=== PATIENT | female | born 1995 | race Two or more races ===

== ENCOUNTER 2019-10-03 20:03 | Emergency (ER) | payer SELFPAY ==
--- NOTE | 2019-10-03 21:00 | ER Document Report ---
ED Medical Screen (RME) - General Chief Complaint: OB Problem (<20wks) Stated Complaint: ABDOMINAL PAIN Time Seen by Provider: 10/03/19 20:57 Mode of Arrival: Ambulatory Information source: Patient Notes: 24-year-old female presents to ED for complaint of pelvic pain vaginal pain and vaginal bleeding. She states the pain started about 3 PM today. She states she took 2 test 2 weeks ago and they were both positive. She states her last menstrual period was on August 14. She denies any past medical history. She denies any previous pregnancies. She does not know her blood type. Patient is alert oriented respirations regular and unlabored speaking in full sentences. I have greeted and performed a rapid initial assessment of this patient. A comprehensive ED assessment and evaluation of the patient, analysis of test results and completion of medical decision making process will be conducted by an additional ED providers. - Related Data Home Medications: albuterol prn Physical Exam - Vital signs Vitals: Temp Pulse Resp BP Pulse Ox 98.5 F 70 16 129/71 H 99 10/03/19 20:09 10/03/19 20:09 10/03/19 20:09 10/03/19 20:09 10/03/19 20:09 Course - Vital Signs Vital signs: Temp Pulse Resp BP Pulse Ox 98.5 F 70 16 129/71 H 99 10/03/19 20:45 10/03/19 20:09 10/03/19 20:09 10/03/19 20:09 10/03/19 20:09
[2019-10-03 21:42] LABS: APPEARANCE,URINE SLIGHTLY-CLOUDY; BILIRUBIN,URINE NEGATIVE (NEGATIVE); COLOR,URINE YELLOW; GLUCOSE, URINE NEGATIVE (NEGATIVE); KETONES,URINE NEGATIVE (NEGATIVE); LEUKOCYTE ESTERASE,URINE NEGATIVE (NEGATIVE); NITRITE,URINE NEGATIVE (NEGATIVE); PROTEIN,URINE NEGATIVE (NEGATIVE); URINE SPECIFIC GRAVITY 1.016; UROBILINOGEN,URINE NEGATIVE mg/dL (<2.0)
[2019-10-03 21:45] LABS: ABSOLUTE BASOPHILS # (AUTO) 0.1 10^3/uL (0.0-0.2); ABSOLUTE EOSINOPHILS # (AUTO) 0.1 10^3/uL (0.0-0.6); ABSOLUTE LYMPHOCYTES (AUTO) 2.5 10^3/uL (0.5-4.7); ABSOLUTE MONOCYTES (AUTO) 0.7 10^3/uL (0.1-1.4); ABSOLUTE NEUT (AUTO) 6.8 10^3/uL (1.7-8.2); BASOPHILS % (AUTO) 0.5 % (0-2); EOSINOPHILS % (AUTO) 0.5 % (0-6); HEMATOCRIT 41.6 % (36.0-47.0); HEMOGLOBIN 14.3 g/dL (12.0-15.5); LYMPHOCYTES % (AUTO) 25.1 % (13-45); MEAN CORPUSCULAR HEMOGLOBIN 30.2 pg (27.0-33.4); MEAN CORPUSCULAR HGB CONC 34.4 g/dL (32.0-36.0); MEAN CORPUSCULAR VOLUME 88 fl (80-97); PLATELET COUNT 250 10^3/uL (150-450); RED BLOOD COUNT 4.75 10^6/uL (3.72-5.28); RED CELL DISTRIBUTION WIDTH 13.4 % (11.5-14.0); SEGMENTED NEUTROPHILS % (AUTO) 66.9 % (42-78); TOTAL CELLS COUNTED % (AUTO) 100 %; WHITE BLOOD COUNT 10.1 10^3/uL (4.0-10.5)
[2019-10-03 22:06] LABS: ALBUMIN 4.6 g/dL (3.5-5.0); ALKALINE PHOSPHATASE 61 U/L (38-126); ANION GAP 9 (5-19); ASPARTATE AMINO TRANSFERASE 24 U/L (14-36); BILIRUBIN,TOTAL 0.2 mg/dL (0.2-1.3); BLOOD UREA NITROGEN 5 mg/dL (7-20); CALCIUM 9.6 mg/dL (8.4-10.2); CARBON DIOXIDE 26 mmol/L (22-30); CHLORIDE 101 mmol/L (98-107); GLUCOSE 90 mg/dL (75-110); POTASSIUM 4.3 mmol/L (3.6-5.0); TOTAL PROTEIN 7.9 g/dL (6.3-8.2)
--- NOTE | 2019-10-03 22:06 | ER Document Report ---
ED GI/ - General Chief Complaint: OB Problem (<20wks) Stated Complaint: ABDOMINAL PAIN Time Seen by Provider: 10/03/19 20:57 [facility] Care [facility] [NO LOCAL MD] - Follow up tomorrow Mode of Arrival: Ambulatory Notes: Patient is a 24-year-old female that comes emergency department for chief complaint of vaginal bleeding and light cramping in her lower abdomen that started about 3 PM today. She states she was lightly working out at the time. She denies injury. She denies current symptoms, fever/chills, nausea/vomiting, dysuria, vaginal discharge. She takes no daily medications. She is G2, P1 with LMP of August 14. First was an at age of 16. She denies any medical history otherwise. - Related Data Allergies/Adverse Reactions: naproxen [From Aleve] Allergy (Verified 10/03/19 20:59) Home Medications: albuterol prn Past Medical History - General Information source: Patient - Social History Smoking Status: Never Smoker Frequency of alcohol use: None Drug Abuse: None Lives with: Family Family History: Reviewed & Not Pertinent Patient has homicidal ideation: No Surgical Hx: Negative - Immunizations Immunizations up to date: Yes Hx Diphtheria, Pertussis, Tetanus Vaccination: Yes Review of Systems - Review of Systems Constitutional: No symptoms reported EENT: No symptoms reported Cardiovascular: No symptoms reported Respiratory: No symptoms reported Gastrointestinal: See HPI Genitourinary: No symptoms reported Female Genitourinary: See HPI Musculoskeletal: No symptoms reported Skin: No symptoms reported Hematologic/Lymphatic: No symptoms reported Neurological/Psychological: No symptoms reported Physical Exam - Vital signs Vitals: Temp Pulse Resp BP Pulse Ox 98.5 F 70 16 129/71 H 99 10/03/19 20:09 10/03/19 20:09 10/03/19 20:09 10/03/19 20:09 10/03/19 20:09 - Notes Notes: GENERAL: Alert, interacts well. No acute distress. HEAD: Normocephalic, atraumatic. EYES: Pupils equal, round, and reactive to light. Extraocular movements intact. ENT: Oral mucosa moist, tongue midline. Oropharynx unremarkable. Airway patent. NECK: Full range of motion. Supple. Trachea midline. No lymphadenopathy. LUNGS: Clear to auscultation bilaterally, no wheezes, rales, or rhonchi. No respiratory distress. Non-tender chest wall. HEART: Regular rate and rhythm. No murmur ABDOMEN: Soft, non-tender. Non-distended. Bowel sounds present in all 4 quadrants. GENITOURINARY: Deferred EXTREMITIES: Moves all 4 extremities spontaneously. No edema, normal radial and dorsalis pedis pulses bilaterally. No cyanosis. BACK: no cervical, thoracic, lumbar midline tenderness. No saddle anesthesia, normal distal neurovascular exam. Moves all extremities in full range of motion. NEUROLOGICAL: Alert and oriented x3. Normal speech. Cranial nerves II through XII grossly intact. Strength 5/5 in all extremities. PSYCH: Normal affect, normal mood. SKIN: Warm, dry, normal turgor. No rashes or lesions noted. Course - Re-evaluation Re-evalutation: Patient is alert and well-appearing. She has a soft benign abdomen. She has unremarkable vital signs. CBC unremarkable, RhoGam not indicated, urinalysis unremarkable, hCG is elevated. Ultrasound does show living intrauterine at 6 weeks and 6 days, does show naima-gestational hemorrhage, no other concerning findings. I discussed findings with patient, provided her with copies, discussed her follow- up, discussed dictations, recommendations, and return precautions at length. Patient states appreciation and agreement. Stable, well-appearing, asymptomatic at time of discharge. - Vital Signs Vital signs: Temp Pulse Resp BP Pulse Ox 98.1 F 69 16 130/81 H 100 10/03/19 23:39 10/03/19 23:39 10/03/19 23:39 10/03/19 23:39 10/03/19 23:39 - Laboratory Result Diagrams: 10/03/19 21:10 10/03/19 21:10 Laboratory results interpreted by me: 10/03/19 10/03/19 21:10 21:10 Sodium 136.3 L BUN 5 L Creatinine 0.44 L Beta HCG, Quant 14022.00 H Urine Blood MODERATE H Urine Ascorbic Acid 40 H Discharge - Discharge Clinical Impression: Vaginal bleeding affecting early Condition: Stable Disposition: HOME, SELF-CARE Additional Instructions: Your ultrasound shows a living at 6 weeks and 6 days in the uterus. You also have a hemorrhage as we discussed, the treatment for this is pelvic rest. Avoid sexual intercourse, any significant physical activity (running, jumping, lifting heavy objects, etc.), follow-up with [employer] SAL[employer] MANAGER for additional management. Take Tylenol as needed for pain, stay hydrated. Start taking vitamins, these are [id number]. Call the listed referral to begin your work-up and management for your . Return for any concerning symptoms including severe worsening pain, heavy bleeding, dizziness, passing out, or any other concerning symptoms. [facility] [NO [facility] - Follow up tomorrow
--- NOTE | 2019-10-03 22:22 | RADIOLOGY REPORT (SQ) ---
EXAM DESCRIPTION: US TRANSVAGINAL COMPLETED DATE/TME: 10/03/2019 20:58 CLINICAL HISTORY: 24 years, Female, Pelvic pain vaginal bleeding lmp August 14 COMPARISON: None. TECHNIQUE: Axial 2-D grayscale images of the pelvis were acquired. Doppler was utilized. LIMITATIONS: None. FINDINGS: Uterus measures 8.9 x 5.4 x 6.0 cm in size. A single intrauterine is identified with measurements as follows: Why-rump length is 0.83 cm Yolk sac is present, measuring 5.7 mm in size heart rate is 139 bpm Estimated gestational age is 6 weeks and 6 days A few foci of hypoechogenicity are noted about the gestational sac, the largest of which measures 2.4 x 1.2 x 2.0 cm in size, suspicious for perigestational hemorrhages. A uterine fibroid is noted about the anterior mid body measuring 1.2 x 0.8 x 0.9 cm in size. Cervix is closed, measuring 3.2 cm in length. Right ovary measures 3.3 x 2.0 x 3.2 cm in size. It demonstrates normal low resistance arterial waveforms/venous flow. It also contains a few normal-appearing follicles. Left ovary measures 3.1 x 2.3 x 2.3 cm in size. It demonstrates a corpus luteal cyst measuring 1.3 x 1.4 x 1.5 cm in size. Otherwise, the left ovary demonstrates a few normal-appearing follicles as well as demonstrates normal low resistance arterial waveforms/venous flow. No significant free fluid is identified. IMPRESSION: Single live intrauterine , as above described. Suspect at least 2 foci of subchorionic hemorrhage. copyright 2010 [employer]- All Rights Reserved
[2019-10-03 23:41] VITALS: BP 130/81
== END 2019-10-03 23:41 | disposition home or self-care (01) ==
LOC: ER 20:03
DX: O46.91 Antepartum hemorrhage, unspecified, first trimester (principal); O26.891 Other specified pregnancy related conditions, first trimester; R10.30 Lower abdominal pain, unspecified; Z3A.00 Weeks of gestation of pregnancy not specified; Z88.8 Allergy status to other drugs, medicaments and biological substances; Z79.899 Other long term (current) drug therapy
CPT/HCPCS: 36415; 76817; 80053; 81001; 84702; 85025; 86900; 86901; 87086; 93976; 99284

== ENCOUNTER 2019-11-02 21:47 | Emergency (ER) | payer MEDICAID ==
[2019-11-02 22:00] VITALS: BP 116/66
--- NOTE | 2019-11-02 22:53 | ER Document Report ---
ED Medical Screen (RME) - General Stated Complaint: VAGINAL BLEEDING Time Seen by Provider: 11/02/19 22:48 Mode of Arrival: Ambulatory Information source: Patient Notes: 24-year-old female patient presented to the emergency department chief complaint of vaginal bleeding in the setting . Patient reports she was seen here on 10/02 with vaginal bleeding during this . At that time she reports she was diagnosed with a subchorionic hemorrhage. She states that resolved but the bleeding started again today. She reports she is now approximately 11 weeks . She has what she describes as a slow but constant amount of bleeding that is bright red blood. She denies passage of any clots. She is a G2, P0. Upon review of her chart she was O+ on 10/03/2019. Abdomen soft, nontender. I have greeted and performed a rapid initial assessment of this patient. A comprehensive ED assessment and evaluation of the patient, analysis of test results and completion of the medical decision making process will be conducted by additional ED providers. I have specifically instructed the patient or family members with the patient to immediately return to any nursing staff should anything change in the patient's condition or with their chief complaint. - Related Data Allergies/Adverse Reactions: naproxen [From Aleve] Allergy (Verified 10/03/19 20:59) Home Medications: vitamin Past Medical History - Social History Chew tobacco use (# tins/day): No Frequency of alcohol use: None Drug Abuse: None Pulmonary Medical History: Reports: Hx Asthma - Immunizations Immunizations up to date: Yes Hx Diphtheria, Pertussis, Tetanus Vaccination: Yes Physical Exam - Vital signs Vitals: Temp Pulse Resp BP Pulse Ox 98.3 F 73 18 116/66 100 11/02/19 21:57 11/02/19 21:57 11/02/19 21:57 11/02/19 21:57 11/02/19 21:57 Course - Vital Signs Vital signs: Temp Pulse Resp BP Pulse Ox 98.3 F 73 18 116/66 100 11/02/19 22:50 11/02/19 21:57 11/02/19 21:57 11/02/19 21:57 11/02/19 21:57
[2019-11-02 23:26] LABS: APPEARANCE,URINE CLOUDY; BILIRUBIN,URINE NEGATIVE (NEGATIVE); COLOR,URINE YELLOW; GLUCOSE, URINE 50 mg/dL (NEGATIVE); KETONES,URINE NEGATIVE (NEGATIVE); LEUKOCYTE ESTERASE,URINE TRACE (NEGATIVE); NITRITE,URINE NEGATIVE (NEGATIVE); PROTEIN,URINE 30 mg/dL (NEGATIVE); URINE SPECIFIC GRAVITY 1.024; UROBILINOGEN,URINE NEGATIVE mg/dL (<2.0)
--- NOTE | 2019-11-02 23:57 | RADIOLOGY REPORT (SQ) ---
EXAM DESCRIPTION: US LESS THAN 14 WEEKS COMPLETED DATE/TME: 11/02/2019 22:51 CLINICAL HISTORY: 24 years Female, vag bleed, preg, approx 11 weeks COMPARISON: None TECHNIQUE: Transabdominal. LIMITATIONS: None. FINDINGS: Living intrauterine fetus measures 11w5d with CHETAN of 05/18/2020. Cardiac activity is 163-bpm. Matheny-rump length is 5.0-cm. 3.0-cm right ovary, 3.0-cm left ovary, 3.0-cm cervical length, and no free fluid appear otherwise unremarkable. IMPRESSION: Living 1st trimester intrauterine gestation. No evidence of complication.
[2019-11-03 00:35] LABS: ABSOLUTE BASOPHILS # (AUTO) 0.1 10^3/uL (0.0-0.2); ABSOLUTE EOSINOPHILS # (AUTO) 0.1 10^3/uL (0.0-0.6); ABSOLUTE LYMPHOCYTES (AUTO) 2.4 10^3/uL (0.5-4.7); ABSOLUTE MONOCYTES (AUTO) 0.7 10^3/uL (0.1-1.4); ABSOLUTE NEUT (AUTO) 5.6 10^3/uL (1.7-8.2); BASOPHILS % (AUTO) 0.6 % (0-2); EOSINOPHILS % (AUTO) 0.8 % (0-6); HEMOGLOBIN 13.1 g/dL (12.0-15.5); LYMPHOCYTES % (AUTO) 27.6 % (13-45); MEAN CORPUSCULAR HEMOGLOBIN 30.9 pg (27.0-33.4); MEAN CORPUSCULAR HGB CONC 35.5 g/dL (32.0-36.0); MEAN CORPUSCULAR VOLUME 87 fl (80-97); MONOCYTES % (AUTO) 7.6 % (3-13); PLATELET COUNT 219 10^3/uL (150-450); RED BLOOD COUNT 4.24 10^6/uL (3.72-5.28); RED CELL DISTRIBUTION WIDTH 13.1 % (11.5-14.0); SEGMENTED NEUTROPHILS % (AUTO) 63.4 % (42-78); TOTAL CELLS COUNTED % (AUTO) 100 %; WHITE BLOOD COUNT 8.9 10^3/uL (4.0-10.5)
[2019-11-03 01:02] LABS: ALBUMIN 4.1 g/dL (3.5-5.0); ALKALINE PHOSPHATASE 46 U/L (38-126); ANION GAP 8 (5-19); ASPARTATE AMINO TRANSFERASE 25 U/L (14-36); BILIRUBIN,TOTAL 0.2 mg/dL (0.2-1.3); BLOOD UREA NITROGEN 6 mg/dL (7-20); CALCIUM 9.3 mg/dL (8.4-10.2); CARBON DIOXIDE 25 mmol/L (22-30); CHLORIDE 103 mmol/L (98-107); GLUCOSE 85 mg/dL (75-110); POTASSIUM 3.9 mmol/L (3.6-5.0); TOTAL PROTEIN 7.4 g/dL (6.3-8.2)
== END 2019-11-03 03:49 | disposition left against medical advice (07) ==
LOC: ER 21:47
DX: Z53.21 Procedure and treatment not carried out due to patient leaving prior to being seen by health care provider (principal); O46.91 Antepartum hemorrhage, unspecified, first trimester; Z3A.11 11 weeks gestation of pregnancy
CPT/HCPCS: 36415; 76801; 80053; 81001; 84702; 85025; 99281

== ENCOUNTER 2019-11-25 16:50 | Emergency (ER) | payer MEDICAID ==
[2019-11-25 17:04] VITALS: BP 120/72
--- NOTE | 2019-11-25 17:34 | ER Document Report ---
HPI - HPI Patient complains to provider of: Urinary frequency Time Seen by Provider: 11/25/19 17:32 Onset: Just prior to arrival Context: This 24-year-old female presents to the emergency room today stating she has had frequency since this morning she states that she is she has no bleeding no spotting no cramping Associated Symptoms: None Exacerbated by: Denies Relieved by: Denies Similar symptoms previously: No Recently seen / treated by doctor: No - REPRODUCTIVE Reproductive: REPORTS: : Past Medical History - General Information source: Patient - Social History Smoking Status: Never Smoker Cigarette use (# per day): No Chew tobacco use (# tins/day): No Smoking Education Provided: No Frequency of alcohol use: None Family History: Reviewed & Not Pertinent Pulmonary Medical History: Reports: Hx Asthma - Immunizations Immunizations up to date: Yes Hx Diphtheria, Pertussis, Tetanus Vaccination: Yes Vertical Provider Document - CONSTITUTIONAL Agree With Documented VS: Yes - INFECTION CONTROL TRAVEL OUTSIDE OF THE [place] IN LAST 30 DAYS: No - HEENT HEENT: Atraumatic, Conjuctival Injection, Normocephalic, PERRLA - NECK Neck: Normal Inspection - RESPIRATORY Respiratory: Breath Sounds Normal, No Respiratory Distress - CARDIOVASCULAR Cardiovascular: Regular Rate, Regular Rhythm - GI/ABDOMEN Gastrointestinal: Abdomen Soft, Abdomen Non-Tender - REPRODUCTIVE Female Genitalia: Normal Inspection - BACK Back: Normal Inspection - MUSCULOSKELETAL/EXTREMETIES Musculoskeletal/Extremeties: MAEW Course - Vital Signs Vital signs: Temp Pulse Resp BP Pulse Ox 98.5 F 85 16 120/72 97 11/25/19 16:58 11/25/19 16:58 11/25/19 16:58 11/25/19 16:58 11/25/19 16:58 - Laboratory Laboratory results interpreted by me: 11/25/19 18:25 Labs- All tests 24 hr 11/25/19 17:38 Urine Color YELLOW Urine Appearance SLIGHTLY-CLOUDY Urine pH 6.0 Ur Specific [place] 1.016 Urine Protein NEGATIVE Urine Glucose (UA) NEGATIVE Urine Ketones 20 H Urine Blood SMALL H Urine Nitrite NEGATIVE Urine Bilirubin NEGATIVE Urine Urobilinogen NEGATIVE Ur Leukocyte Esterase LARGE H Urine WBC (Auto) 25 Urine RBC (Auto) 3 Urine Bacteria (Auto) 2+ Squamous Epi Cells Auto <1 Urine Mucus (Auto) RARE Urine Ascorbic Acid NEGATIVE Discharge - Discharge Clinical Impression: UTI (urinary tract infection) Qualifiers: Urinary tract infection type: acute cystitis Hematuria presence: without hematuria Qualified Code(s): N30.00 - Acute cystitis without hematuria Condition: Good Disposition: HOME, SELF-CARE Instructions: Cephalexin ([facility]), Urinary Tract Infection ([facility]) Additional Instructions: Increase fluid intake. Must follow-up with HOUSE CALLS NURSE PRACTITIONER in 2 to 3 days. Return for any change worsening. Prescriptions: Cephalexin Monohydrate [Keflex 500 mg Capsule] 500 mg PO Q6H 5 Days capsule
[2019-11-25 18:15] LABS: APPEARANCE,URINE SLIGHTLY-CLOUDY; BILIRUBIN,URINE NEGATIVE (NEGATIVE); COLOR,URINE YELLOW; GLUCOSE, URINE NEGATIVE (NEGATIVE); KETONES,URINE 20 mg/dL (NEGATIVE); LEUKOCYTE ESTERASE,URINE LARGE (NEGATIVE); NITRITE,URINE NEGATIVE (NEGATIVE); PROTEIN,URINE NEGATIVE (NEGATIVE); URINE SPECIFIC GRAVITY 1.016; UROBILINOGEN,URINE NEGATIVE mg/dL (<2.0)
== END 2019-11-25 18:30 | disposition home or self-care (01) ==
LOC: ER 16:50
DX: O23.10 Infections of bladder in pregnancy, unspecified trimester (principal); O99.519 Diseases of the respiratory system complicating pregnancy, unspecified trimester; J45.909 Unspecified asthma, uncomplicated; Z3A.00 Weeks of gestation of pregnancy not specified
CPT/HCPCS: 81001; 99283

== ENCOUNTER 2020-03-01 16:30 | Emergency (ER) | payer MEDICAID ==
--- NOTE | 2020-03-01 17:07 | ER Document Report ---
ED Medical Screen (RME) - General Chief Complaint: Syncope Stated Complaint: SOB/NAUSEA/BACK PAIN Time Seen by Provider: 03/01/20 16:50 Mode of Arrival: Wheelchair Information source: Patient Notes: 24-year-old female presented to ED for complaint of shortness of breath while in the shower. She states she does have a history of asthma so she went on and finished her cool showers because she is 28 weeks . She states that after she finished her shower she got dressed and they went to the store while at the [employer] she became very lightheaded dizzy and blacked out. She states she could not hear or see for a while but her brother states it was only a couple minutes. She states she did not fall because her brother was with her. She states she then became more short of breath and he brought her to the emergency room. Patient access in the front of the emergency room called labor and delivery and they stated she needed to come to the emergency room first. I did speak with Dr. Fitch and she stated to do the normal syncopal work-up and then if we need to send her up to labor and delivery. Patient is alert and oriented mildly tachypneic at 22 lungs clear and able to answer questions. She states only medical history is asthma no surgeries does not smoke drink or use any illicit drugs. I have greeted and performed a rapid initial assessment of this patient. A comprehensive ED assessment and evaluation of the patient, analysis of test results and completion of medical decision making process will be conducted by an additional ED providers. TRAVEL OUTSIDE OF THE [place] IN LAST 30 DAYS: No - Related Data Allergies/Adverse Reactions: naproxen [From Aleve] Allergy (Verified 11/25/19 17:32) Past Medical History - Social History Chew tobacco use (# tins/day): No Frequency of alcohol use: None Drug Abuse: None Pulmonary Medical History: Reports: Hx Asthma - Immunizations Immunizations up to date: Yes Hx Diphtheria, Pertussis, Tetanus Vaccination: Yes Physical Exam - Vital signs Vitals: Temp Pulse Resp BP Pulse Ox 98.1 F 83 18 106/73 100 03/01/20 16:36 03/01/20 16:36 03/01/20 16:36 03/01/20 16:36 03/01/20 16:36 Course - Vital Signs Vital signs: Temp Pulse Resp BP Pulse Ox 98.1 F 83 18 106/73 100 03/01/20 16:36 03/01/20 16:36 03/01/20 16:36 03/01/20 16:36 03/01/20 16:36
[2020-03-01 17:42] LABS: ABSOLUTE LYMPHOCYTES (AUTO) 1.3 10^3/uL (0.5-4.7); ABSOLUTE MONOCYTES (AUTO) 0.7 10^3/uL (0.1-1.4); ABSOLUTE NEUT (AUTO) 8.8 10^3/uL (1.7-8.2); BASOPHILS % (AUTO) 0.2 % (0-2); EOSINOPHILS % (AUTO) 0.2 % (0-6); HEMATOCRIT 34.6 % (36.0-47.0); HEMOGLOBIN 12.2 g/dL (12.0-15.5); LYMPHOCYTES % (AUTO) 11.8 % (13-45); MEAN CORPUSCULAR HEMOGLOBIN 30.5 pg (27.0-33.4); MEAN CORPUSCULAR HGB CONC 35.1 g/dL (32.0-36.0); MEAN CORPUSCULAR VOLUME 87 fl (80-97); MONOCYTES % (AUTO) 6.3 % (3-13); PLATELET COUNT 195 10^3/uL (150-450); RED BLOOD COUNT 3.99 10^6/uL (3.72-5.28); RED CELL DISTRIBUTION WIDTH 12.7 % (11.5-14.0); SEGMENTED NEUTROPHILS % (AUTO) 81.5 % (42-78); TOTAL CELLS COUNTED % (AUTO) 100 %; WHITE BLOOD COUNT 10.9 10^3/uL (4.0-10.5)
[2020-03-01 17:57] LABS: ALBUMIN 3.9 g/dL (3.5-5.0); ALKALINE PHOSPHATASE 103 U/L (38-126); ANION GAP 10 (5-19); ASPARTATE AMINO TRANSFERASE 24 U/L (14-36); BILIRUBIN,DIRECT 0.2 mg/dL (0.0-0.4); BILIRUBIN,TOTAL 0.3 mg/dL (0.2-1.3); BLOOD UREA NITROGEN 8 mg/dL (7-20); CALCIUM 9.7 mg/dL (8.4-10.2); CARBON DIOXIDE 21 mmol/L (22-30); CHLORIDE 106 mmol/L (98-107); CREATINE KINASE 21 U/L (30-135); GLUCOSE 101 mg/dL (75-110); POTASSIUM 3.8 mmol/L (3.6-5.0); TOTAL PROTEIN 7.3 g/dL (6.3-8.2)
[2020-03-01 18:52] LABS: AMORPHOUS SEDIMENT,URINE 1+ /HPF; APPEARANCE,URINE TURBID; BILIRUBIN,URINE NEGATIVE (NEGATIVE); COLOR,URINE YELLOW; GLUCOSE, URINE NEGATIVE (NEGATIVE); KETONES,URINE NEGATIVE (NEGATIVE); LEUKOCYTE ESTERASE,URINE NEGATIVE (NEGATIVE); NITRITE,URINE NEGATIVE (NEGATIVE); PROTEIN,URINE NEGATIVE (NEGATIVE); URINE SPECIFIC GRAVITY 1.011; UROBILINOGEN,URINE NEGATIVE mg/dL (<2.0)
[2020-03-01] MEDS ORDERED: NORMAL SALINE 1000 ML 1,000 ML IV ONE ×2 (19:03→19:49)
--- NOTE | 2020-03-01 19:27 | ER Document Report ---
ED Syncope and Near Syncope - General Chief Complaint: Syncope Stated Complaint: SOB/NAUSEA/BACK PAIN Time Seen by Provider: 03/01/20 16:50 Primary Care Provider: OWEN GRIGSBY MD [Primary Care Provider] - Follow up as needed Mode of Arrival: Wheelchair TRAVEL OUTSIDE OF THE [place] IN LAST 30 DAYS: No - HPI Notes: Patient is a G2, P0 who is 28 weeks and presents with a presyncopal episode. Patient states that today in the shower she felt slightly short of breath. She states this has been happening to her due to the and her history of asthma. Patient states she was then rushing around the house to get ready to go to the store and was wearing her mask where she became slightly more short of breath. When patient was checking out, she states that she felt lightheaded and felt like she was going to pass out so she sat down. Patient did not lose consciousness. She did not fall or hit her head. Patient denies any recent illnesses. No cough or cold symptoms. No leg swelling. No chest pain. Patient states that currently she feels fine and does not have any shortness of breath. Patient states she feels the baby move. She has had an uneventful and follows with OB. She states that she has been staying hydrated. 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 - Related Data Allergies/Adverse Reactions: naproxen [From Aleve] Allergy (Verified 11/25/19 17:32) Past Medical History - General Information source: Patient - Social History Smoking Status: Never Smoker Chew tobacco use (# tins/day): No Frequency of alcohol use: None Drug Abuse: None Family History: Reviewed & Not Pertinent Pulmonary Medical History: Reports: Hx Asthma - Immunizations Immunizations up to date: Yes Hx Diphtheria, Pertussis, Tetanus Vaccination: Yes Review of Systems - Review of Systems Notes: CONSTITUTIONAL: No fever, fatigue or weight loss. SKIN: No rash. HENT: No congestion, ear pain, or sore throat. EYES: No recent vision problems or eye pain. CARDIOVASCULAR: No chest pain or edema. RESPIRATORY: No cough. Positive for resolved episode of shortness of breath. GASTROINTESTINAL: No abdominal pain, nausea, vomiting, bloody stools or diarrhea. GENITOURINARY: No dysuria. MUSCULOSKELETAL: No joint pain or swelling. LYMPHATIC: No swollen glands. NEUROLOGIC: No seizures. No headache, focal weakness or sensory changes. HEMATOLOGIC: No unusual bruising or bleeding. PSYCHIATRIC: No depression or anxiety. Physical Exam - Vital signs Vitals: Temp Pulse Resp BP Pulse Ox 98.1 F 83 18 106/73 100 03/01/20 16:36 03/01/20 16:36 03/01/20 16:36 03/01/20 16:36 03/01/20 16:36 - General General appearance: Appears well Notes: VITAL SIGNS: Within normal limits. GENERAL: No acute distress, non-toxic appearance. HEAD: Normal with no signs of head trauma. EYES: EOMI, conjunctiva normal, no discharge. EARS: Hearing grossly intact. NOSE: Normal. NECK: Normal range of motion, no tenderness, supple, no lymphadenopathy, No adenopathy, no JVD. CHEST: Clear breath sounds bilaterally. No wheezes, rales, or rhonchi. CARDIAC: Regular rate and rhythm. S1 and S2, without murmurs, gallops, or rubs. VASCULAR: No Edema. ABDOMEN: Gravid abdomen. GENITOURINARY: Normal, No tenderness MUSCULOSKELETAL: Good range of motion of all major joints. Extremities without clubbing, cyanosis or edema. NEUROLOGICAL: Alert and oriented x 3. No focal sensory or strength deficits. Speech normal. Follows commands appropriately. PSYCHIATRIC: Normal Affect, judgement and mood. SKIN: Normal appearance with no rashes or lesions. Course - Re-evaluation Re-evalutation: 03/01/20 19:27 Patient is very well-appearing. She is satting 100% on room air. Patient is denying any chest pain or shortness of breath currently. She thinks that she was just rushing around and wearing a mask which made her have the presyncopal event. I did discuss all lab work with the patient. I offered her IV fluids but she states she prefers to go home and eat and drink. I do not suspect PE in this patient due to her vital signs and resolution of all symptoms. I will di scuss with OB to see if they would like to monitor her upstairs as she is 28 weeks . Also will check heart tones. She states that she just wanted to make sure that the baby was okay after this episode. Patient has good follow-up with OB. 03/01/20 19:43 I discussed with the OB attending, Dr. Lashae Fitch about patient. She states that as long as the baby is moving and has normal heart tones, and patient is asymptomatic, she does not need to be monitored upstairs. She recommended that she follow-up with her doctor in 1 week. - Vital Signs Vital signs: Temp Pulse Resp BP Pulse Ox 97.8 F 93 17 109/62 100 03/01/20 20:11 03/01/20 20:11 03/01/20 20:11 03/01/20 20:11 03/01/20 20:11 - Laboratory Result Diagrams: 03/01/20 17:00 03/01/20 17:00 Laboratory results interpreted by me: 03/01/20 03/01/20 17:00 17:00 WBC 10.9 H Hct 34.6 L Lymph % (Auto) 11.8 L Absolute Neuts (auto) 8.8 H Seg Neutrophils % 81.5 H Sodium 136.6 L Carbon Dioxide 21 L Creatinine 0.43 L Creatine Kinase 21 L - EKG Interpretation by Me EKG shows normal: Sinus rhythm Rate: Normal Rhythm: NSR When compared to previous EKG there are: Previous EKG unavailable Discharge - Discharge Clinical Impression: Pre-syncope Condition: Stable Disposition: HOME, SELF-CARE Instructions: Near Syncopal Episode ([facility]) Additional Instructions: Please follow-up with your CORPORATE RECEPTIONIST within the next week. Please make sure you are staying hydrated and eating regular meals. Return to the ER for any return of symptoms, shortness of breath, or chest pain. Referrals: OWEN GRIGSBY MD [Primary Care Provider] - Follow up as needed
[2020-03-01 20:14] VITALS: BP 109/62
--- NOTE | 2020-03-02 16:33 | EKG REPORT ---
SEVERITY:- NORMAL ECG - SINUS RHYTHM : Confirmed by: Emanuel Moffett 02-Mar-2020 16:32:56
== END 2020-03-01 20:11 | disposition home or self-care (01) ==
LOC: ER 16:30
DX: O26.893 Other specified pregnancy related conditions, third trimester (principal); R55 Syncope and collapse; O99.513 Diseases of the respiratory system complicating pregnancy, third trimester; J45.909 Unspecified asthma, uncomplicated; Z3A.28 28 weeks gestation of pregnancy; Z88.8 Allergy status to other drugs, medicaments and biological substances
CPT/HCPCS: 93005; 99284; 36415; 82962; 82550; 85025; 80053; 81001; 84484; 93010; J7030

== ENCOUNTER 2020-03-28 20:08 | Emergency (ER) | payer MEDICAID ==
[2020-03-28 20:36] VITALS: BP 121/74
[2020-03-28] MEDS ORDERED: POLYMYXIN B SULFATE/TMP OPH SOLN (10 ML/ER DISP) OS ONE (21:00)
--- NOTE | 2020-03-28 21:00 | ER Document Report ---
HPI - HPI Time Seen by Provider: 03/28/20 20:57 Pain Level: 2 Context: Patient is a 24-year-old female presents emergency department with a chief complaint of left eye erythema and edema to her upper eyelid. Patient states that she has had a stye for the past about a week. She states that she has had a small amount of purulent drainage from the stye. States that she will have on and off blurred vision, due to the drainage. - ROS Systems Reviewed and Negative: Yes All other systems reviewed and negative - CONSTITUTIONAL Constitutional: DENIES: Fever, Chills - EENT EENT: REPORTS: Eye problems - LT - RESPIRATORY Respiratory: DENIES: Trouble Breathing, Coughing - REPRODUCTIVE Reproductive: REPORTS: : - DERM Skin Color: Normal Skin Problems: None Past Medical History - Social History Smoking Status: Never Smoker Family History: Reviewed & Not Pertinent Pulmonary Medical History: Reports: Hx Asthma - Immunizations Immunizations up to date: Yes Hx Diphtheria, Pertussis, Tetanus Vaccination: Yes Vertical Provider Document - CONSTITUTIONAL Agree With Documented VS: Yes Exam Limitations: No Limitations General Appearance: No Apparent Distress - INFECTION CONTROL TRAVEL OUTSIDE OF THE [place] IN LAST 30 DAYS: No - HEENT HEENT: Atraumatic, Conjuctival Injection - Very slight with stye to left upper lid, Normocephalic, PERRLA - RESPIRATORY Respiratory: Breath Sounds Normal, No Respiratory Distress - CARDIOVASCULAR Cardiovascular: Regular Rate, Regular Rhythm Pulses: Normal: Radial - MUSCULOSKELETAL/EXTREMETIES Musculoskeletal/Extremeties: FROM - NEURO Level of Consciousness: Awake, Alert, Appropriate Motor/Sensory: No Motor Deficit, No Sensory Deficit - DERM Integumentary: Warm, Dry, No Rash Course - Re-evaluation Re-evalutation: 03/28/20 21:03 Negative Hanna sign. Patient's physical exam is consistent with a stye. Will place patient on Polytrim eyedrops. Referral for ophthalmology if needed. She is in agreement with this plan. Follow-up precautions were given. Verbal discharge instructions were given to the patient. They verbalized understanding. They are stable for discharge. - Vital Signs Vital signs: Temp Pulse Resp BP Pulse Ox 98.4 F 77 14 121/74 100 03/28/20 20:34 03/28/20 20:34 03/28/20 20:34 03/28/20 20:34 03/28/20 20:34 Discharge - Discharge Clinical Impression: Stye Qualifiers: Laterality: left Eyelid: upper Qualified Code(s): H00.014 - Hordeolum externum left upper eyelid Condition: Stable Disposition: HOME, SELF-CARE Additional Instructions: Sty Your examination reveals that you have a sty. This is an infection of a hair follicle in the eyelid. As the infection progresses, it forms an abscess along the edge of the eyelid. A sty causes a lot of swelling and tenderness. As the body fights the infection, a lump forms. The knot slowly goes away over a couple of weeks. Treatment includes applying warm compresses to the eye for 10 to 15 minutes every two or three hours. Usually, the infection will drain from the abscess spontaneously, however, some sties require surgical drainage. You may be given antibiotic eye drops to prevent the infection from spreading to the surface of the eye. If the doctor is concerned that the infection is severe, you may be given antibiotics by mouth or shot. Call the doctor at once if vision decreases, if swelling becomes severe, or if eye pain becomes severe. See the doctor for follow-up should you fail to improve as expected. Place 1 drop of the antibiotic eyedrops to your left eye 4 times a day. Follow- up with ophthalmology as needed. Referrals: OWEN GRIGSBY MD [Primary Care Provider] - Follow up as needed ROEL DILLON MD [ACTIVE STAFF] - Follow up as needed
== END 2020-03-28 21:15 | disposition home or self-care (01) ==
LOC: ER 20:08
DX: O26.899 Other specified pregnancy related conditions, unspecified trimester (principal); H00.014 Hordeolum externum left upper eyelid; O99.519 Diseases of the respiratory system complicating pregnancy, unspecified trimester; J45.909 Unspecified asthma, uncomplicated; Z3A.00 Weeks of gestation of pregnancy not specified
CPT/HCPCS: 99283; J3490

== ENCOUNTER 2020-05-13 15:54 | Outpatient (CLI) | payer MEDICAID | END 2020-05-13 18:09 | disposition home or self-care (01) | LOC: LC 15:54 | PROVIDERS: ATTEND Obstetrics & Gynecology | DX: O47.1 False labor at or after 37 completed weeks of gestation (principal); Z3A.38 38 weeks gestation of pregnancy | CPT/HCPCS: 59025 ==

== ENCOUNTER → 2020-05-13 | Outpatient (CLI) | payer MEDICAID ==
[2020-05-13 14:40] LABS: APPEARANCE,URINE CLOUDY; BILIRUBIN,URINE NEGATIVE (NEGATIVE); COLOR,URINE YELLOW; GLUCOSE, URINE NEGATIVE (NEGATIVE); KETONES,URINE NEGATIVE (NEGATIVE); LEUKOCYTE ESTERASE,URINE MODERATE (NEGATIVE); NITRITE,URINE NEGATIVE (NEGATIVE); PROTEIN,URINE 30 mg/dL (NEGATIVE); URINE SPECIFIC GRAVITY 1.016; UROBILINOGEN,URINE NEGATIVE mg/dL (<2.0)
[2020-05-13 14:54] LABS: URINE AMPHETAMINES SCREEN NEGATIVE; URINE BARBITURATES SCREEN NEGATIVE; URINE BENZODIAZEPINES SCREEN NEGATIVE; URINE COCAINE SCREEN NEGATIVE; URINE MARIJUANA (THC) SCREEN NEGATIVE; URINE METHADONE SCREEN NEGATIVE; URINE PHENCYCLIDINE SCREEN NEGATIVE
--- NOTE | 2020-05-13 15:08 | Progress Note ---
Provider Note Provider Note: pt came in c/o of leaking of fluid, now 38.6 weeks, irreg uc's, mild on palpation, hsb at BS, reports good FM, states 39 weeks tomorrow PE WNL, no further complaints, rev S&S to report, keep appt at [facility] on
--- NOTE | 2020-05-13 15:40 | Non Stress Test Report ---
Non Stress Test Datetime Report Generated by CPN: 05/13/2020 15:40 DEMOGRAPHIC Test Number: 1 EGA NST: 38.6 INDICATION Indication for Study (NST) Other: suspected SROM VITAL SIGNS Temperature - NST: 97.8 Pulse - NST: 85 RESP - NST: 16 NBPSYS NST: 123 NBPDIA NST: 84 MONITORING Monitor Explained: Monitor Explained; Test Explained; Patient Verbalized Understanding Time on Monitor: 05/13/2020 14:44 Time off Monitor: 05/13/2020 15:04 NST Duration: 20 NST INTERVENTIONS NST Interventions: PO Hydration; Reposition Patient Physician Notified NST: J. Brewer, CNM BABY A: [id number] BABY A Movement : Present Contraction Frequency : 2-6 FHR Baseline : 135 Accelerations : 15X15 Decelerations : None Variability : Moderate 6-25bpm NST Review: Meets Criteria for Reactive NST NST Review and Verified By : Key Adams RN NST Results: Reactive NST REPORT Report Trigger: Send Report
== END ==
LOC: LC 13:48
PROVIDERS: ATTEND Obstetrics & Gynecology
DX: O47.1 False labor at or after 37 completed weeks of gestation (principal); Z3A.38 38 weeks gestation of pregnancy
CPT/HCPCS: 59025; 80307; 81005; 84112

== ENCOUNTER 2020-05-14 06:46 | Inpatient (IN) | payer MEDICAID ==
[2020-05-14] MEDS ORDERED: MISOPROSTOL 0.2 MG TABLET ONE (07:45)
[2020-05-14] MEDS ORDERED: OXYTOCIN 10 UNIT/ML VIAL ONE (07:45)
[2020-05-14] MEDS ORDERED: LIDOCAINE 1% INJ-PF (10 MG/ML) 30 ML SDV ONE (07:46)
[2020-05-14] MEDS ORDERED: OXYTOCIN/0.9 % SODIUM CHLORIDE 30 UNIT/500 ML RTUINJ ONE (07:46)
[2020-05-14] MEDS ORDERED: PENICILLIN G POTASSIUM 5,000,000 UNIT in DEXTROSE 5%-WATER 100 ML IV ONE (08:20)
[2020-05-14] MEDS ORDERED: RINGERS SOLUTION,LACTATED 500 ML IV ONE (08:20)
[2020-05-14] MEDS ORDERED: RINGERS SOLUTION,LACTATED 1,000 ML IV ONE (08:20)
[2020-05-14 08:26] LABS: URINE AMPHETAMINES SCREEN NEGATIVE; URINE BARBITURATES SCREEN NEGATIVE; URINE BENZODIAZEPINES SCREEN NEGATIVE; URINE COCAINE SCREEN NEGATIVE; URINE MARIJUANA (THC) SCREEN NEGATIVE; URINE METHADONE SCREEN NEGATIVE; URINE PHENCYCLIDINE SCREEN NEGATIVE
[2020-05-14] MEDS ORDERED: NALBUPHINE HCL INJ 10 MG/1 ML AMPULE ONE (08:26)
[2020-05-14] MEDS ORDERED: PROMETHAZINE HCL INJ 25 MG/1 ML VIAL ONE (08:26)
[2020-05-14] MEDS ORDERED: NALBUPHINE HCL INJ 10 MG/1 ML AMPULE INJ ONE (08:27)
[2020-05-14] MEDS ORDERED: PROMETHAZINE HCL INJ 25 MG/1 ML VIAL IV ONE (08:28)
[2020-05-14] MEDS: RINGERS SOLUTION,LACTATED 1,000 ML IV PRN ×2 (08:38→17:37)
[2020-05-14 08:39] LABS: BILIRUBIN,URINE NEGATIVE (NEGATIVE); GLUCOSE, URINE NEGATIVE (NEGATIVE); KETONES,URINE 300 mg/dL (NEGATIVE); LEUKOCYTE ESTERASE,URINE TRACE (NEGATIVE); NITRITE,URINE NEGATIVE (NEGATIVE); PROTEIN,URINE 100 mg/dL (NEGATIVE); UROBILINOGEN,URINE NEGATIVE mg/dL (<2.0)
[2020-05-14] MEDS ORDERED: PENICILLIN G-K 5 MILLION UNIT VIAL ONE ×2 (08:42→20:55)
[2020-05-14 08:50] LABS: APPEARANCE,URINE HAZY; COLOR,URINE LIGHT YELLOW
[2020-05-14 09:00] LABS: ABSOLUTE LYMPHOCYTES (AUTO) 1.2 10^3/uL (0.5-4.7); ABSOLUTE MONOCYTES (AUTO) 0.4 10^3/uL (0.1-1.4); ABSOLUTE NEUT (AUTO) 11.4 10^3/uL (1.7-8.2); BASOPHILS % (AUTO) 0.2 % (0-2); HEMATOCRIT 30.7 % (36.0-47.0); HEMOGLOBIN 10.5 g/dL (12.0-15.5); MEAN CORPUSCULAR HGB CONC 34.2 g/dL (32.0-36.0); MEAN CORPUSCULAR VOLUME 82 fl (80-97); MONOCYTES % (AUTO) 3.4 % (3-13); PLATELET COUNT 166 10^3/uL (150-450); RED BLOOD COUNT 3.74 10^6/uL (3.72-5.28); RED CELL DISTRIBUTION WIDTH 14.8 % (11.5-14.0); SEGMENTED NEUTROPHILS % (AUTO) 87.4 % (42-78); TOTAL CELLS COUNTED % (AUTO) 100 %; WHITE BLOOD COUNT 13.1 10^3/uL (4.0-10.5)
--- NOTE | 2020-05-14 12:18 | Admission Physical ---
Datetime Report Generated by CPN: 05/14/2020 12:17 CURRENT ADMISSION Chief Complaint: Uterine Contractions Chief Complaint Other: came in to L_D this am c/o contractions she has had labile blood pressures 4min decel spontaneous minimal cervical change Indication for Induction: Not Applicable Indication for Induction- Other: non-reassuring FHT Possible GHTN Admit Impression : Term, Intrauterine ; No Active Labor Admit Plan: Admit to Unit; Initiate Labor Augmentation Protocol ALLERGIES Medication Allergies: No Medication Allergies: naproxen (05/14/2020) Latex: No Latex Allergies OBSTETRICAL HISTORY EDC: 05/21/2020 00:00 : 2 Para: 0 : 0 IAB: 1 Livin Cesareans: 0 VBACs: 0 Gestational Diabetes: No Rh Sensitization: No Incompetent Cervix: No MAXIME: No Infertility: No ART Treatment: No Uterine Anomaly: No IUGR: No Hx Previous C/S: No Macrosomia: No Hx Loss/Stillborn: No PIH: No Hx : No Placenta Previa/Abruption: No Depression/PP Depression: No PTL/PROM: No Post Hemorrhage: No Current Procedures: Ultrasound; NST Obstetrical History Comments: [id number] G2-current SEE RECORDS Alcohol: No Marijuana : No Cocaine: No Other Illicit Drugs: No Cigarettes: Never Smoker. 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 Surgery: No Heart Disease: No Hosp/Surgery: No Autoimmune Disorder: No Anesthetic Complications: No Kidney Disease: No Abnormal Pap Smear: No Neuro/Epilepsy: No Psychiatric Disorders: No Other Medical Diseases: No Hepatitis/Liver Disease: No Significant Family History: No Varicosities/Phlebitis: No Trauma/Violence : No Thyroid Dysfunction: No Medical History Comments: rescue inhaler as needed - no attacks during INFECTIOUS HISTORY Gonorrhea: No Genital Herpes: No Chlamydia: No Tuberculosis: No Syphilis: No Hepatitis: No HIV/AIDS Exposure: No Rash or Viral Illness: No HPV: No PHYSICAL EXAM General: Normal HEENT: Deferred Neurologic: Normal Thyroid: Deferred Heart: Normal Lungs: Normal Breast: Deferred Back: Normal Abdomen: Normal Genitourinary Exam: Normal Extremities: Normal DTRs: Normal Pelvic Type: Adequate Physical Exam Comments: cervix exam per RN 3-100/-1 Vital Signs: Reviewed FETUS A EGA: 39.0 Monitoring: External US FHR- Baseline: 140 Variability: Moderate 6-25bpm Presentation: Vertex Admit Comment: admitted per DrJacy Torresb will augment prn PLANS FOR LABOR AND DELIVERY Labor and Delivery: None Pain Management: Medications; Epidural Feeding Preference: Breast Benefit of Breast Feed Discussed: Yes Circumcision: N/A INFORMED CONSENT Assignment: Gregg Brasher MD Signature: with User ID: Juan Pablo : with User ID: Juan [email or web address]
[2020-05-14] MEDS: PENICILLIN G POTASSIUM 2,500,000 UNIT in DEXTROSE 5%-WATER 50 ML IV SCH ×3 (12:52→21:10)
[2020-05-14] MEDS ORDERED: OXYTOCIN/0.9 % SODIUM CHLORIDE 30 UNIT/500 ML RTUINJ IV PRN ×2 (17:29→23:40)
[2020-05-14] MEDS ORDERED: FENTANYL/BUPIVACAINE/NS/PF 300 MCG/150 ML RTUINJ EPI ONE (17:51)
[2020-05-14] MEDS ORDERED: EPHEDRINE SULFATE INJ 50 MG/1 ML AMPULE ONE (17:51)
[2020-05-14] MEDS ORDERED: ROPIVACAINE HCL 0.2% INJ/PF (2 MG/ML) 20 ML SDV ONE (17:52)
[2020-05-14] MEDS ORDERED: DIPHENHYDRAMINE HCL 25 MG CAPSULE PO PRN (23:40)
[2020-05-14] MEDS ORDERED: ACETAMINOPHEN WITH CODEINE #3 TABLET PO PRN ×2 (23:40)
[2020-05-14] MEDS ORDERED: MAGNESIUM HYDROXIDE SUSP 30 ML UDCUP PO PRN (23:40)
[2020-05-14] MEDS ORDERED: GLYCERIN/WITCH HAZEL LEAF 1 EACH MED..WIPE TP PRN (23:40)
[2020-05-14] MEDS ORDERED: ACETAMINOPHEN 650 MG SUPP.RECT PR PRN (23:40)
[2020-05-14] MEDS ORDERED: DIBUCAINE 1% OINTMENT 28 GM TP PRN (23:40)
[2020-05-14] MEDS ORDERED: MAG HYDROX/AL HYDROX/SIMETH SUSP 30 ML UDCUP PO PRN (23:40)
[2020-05-14] MEDS ORDERED: MEASLES,MUMPS&RUBELLA VACC/PF 0.5 ML VIAL SUBCUT PRN (23:40)
[2020-05-14] MEDS ORDERED: DIPH/PERTUSS(ACELL)/TETANUS VAC/PF 0.5 ML SYR (>=10YO) IM PRN (23:40)
[2020-05-14] MEDS ORDERED: FAMOTIDINE 20 MG TABLET PO PRN (23:40)
[2020-05-14] MEDS ORDERED: ACETAMINOPHEN 325 MG TABLET PO PRN (23:40)
[2020-05-14] MEDS ORDERED: VARICELLA VACC/PF (1350 UNIT/0.5 ML) 0.5 ML VIAL SUBCUT PRN (23:40)
[2020-05-14] MEDS ORDERED: BENZOCAINE/MENTHOL AEROSOL SPRAY 56 ML TOP PRN (23:40)
[2020-05-14] MEDS ORDERED: HYDROCODONE/ACETAMINOPHEN 5-325 MG TABLET PO PRN (23:40)
[2020-05-14] MEDS ORDERED: ZOLPIDEM TARTRATE 5 MG TABLET PO PRN (23:40)
[2020-05-14] MEDS ORDERED: PSEUDOEPHEDRINE HCL 30 MG TABLET PO PRN (23:40)
--- NOTE | 2020-05-15 00:57 | Delivery Summary ---
Del Sum A-C Datetime Report Generated by CPN: 05/15/2020 00:56 DELIVERY PERSONNEL DELIVERY PERSONNEL: [id number] Delivery Doctor:: Gregg Brasher MD Labor and Delivery Nurse:: Carline Trinidad RN Labor and Delivery Nurse:: Leatha Lawler RN Sea Kayaking Guide/WEB MASTER: Yovana Leon, SOCIAL WORK THERAPIST MATERNAL INFORMATION Delivery Anesthesia: Epidural Medications After Delivery: Pitocin 30 Units in 500ml NS/D5W Delivery QBL: 50 Maternal Complications: None LABOR SUMMARY EDC: 05/21/2020 00:00 No. Babies in Womb: 1 Attempted: No Labor Anesthesia: Epidural LABOR INFORMATION Reason for Induction: Not Applicable Onset of Labor: 05/14/2020 15:03 Complete Dilatation: 05/14/2020 22:36 Oxytocin: Augmentation Group B Beta Strep: POSITIVE Antibiotics # of Doses: 4 Antibiotics Time of Last Dose: 05/14/2020 21:10 Name of Antibiotic Given: Penicillin Steroids Given: None Reason Steroids Not Administered: Not Applicable MEMBRANES Membranes Rupture Method: Spontaneous Rupture of Membranes: 05/14/2020 15:03 Length of Rupture (hr): 8.43 Amniotic Fluid Color: Clear Amniotic Fluid Amount: Small Amniotic Fluid Odor: Normal STAGES OF LABOR Stage 1 hr: 7 Stage 1 min: 33 Stage 2 hr: 0 Stage 2 min: 53 Stage 3 hr: 0 Stage 3 min: 3 Total Time in Labor hr: 8 Total Time in Labor min: 29 VAGINAL DELIVERY Episiotomy: None Laceration #1: Perineal Laceration Extension #1: N/A Laceration Repair: Not Applicable Laceration Repair Note: repaired with 2-0 vycril CSECTION DELIVERY Primary Indication: N/A BABY A INFORMATION Delivery Date/Time: 05/14/2020 23:29 Method of Delivery: Vaginal Nurse Controlled Delivery: No Born in Route : No : N/A Forceps: N/A Vacuum Extraction: N/A Shoulder Dystocia : No PRESENTATION/POSITION BABY A Presentation: Cephalic Cephalic Presentation: Vertex Vertex Position: Right Occipital Anterior Breech Presentation: N/A PLACENTA INFORMATION BABY A Placenta Delivery Time : 05/14/2020 23:32 Placenta Method of Delivery: Spontaneous Placenta Status: Delivered SCORES BABY A Heart Rate 1 min: >100 bpm Resp Effort 1 min: Good Cry Reflex Irritability 1 min: Cough or Sneeze or Pulls Away Muscle Tone 1 min: Active Motion Color 1 min: Body Sobieski, Extremities Blue Resuscitation Effort 1 min: Tactile Stimulation SCORE 1 MIN: 9 Heart Rate 5 min: >100 bpm Resp Effort 5 min: Good Cry Reflex Irritability 5 min: Cough or Sneeze or Pulls Away Muscle Tone 5 min: Active Motion Color 5 min: Body Sobieski, Extremities Blue Resuscitation Effort 5 min: Tactile Stimulation SCORE 5 MIN: 9 INFANT INFORMATION BABY A Gestational Age at Delivery: 39.0 Gestational Status: Full Term- 39- 40.6 Weeks Infant Outcome : Liveborn Infant Condition : Stable Sex: Female IDENTIFICATION BABY A Infant Verification Date/Time: 05/14/2020 23:53 ID Band Number: [id number] Mother's Name Verified: Yes RN Verifying : Any Lawler RN Additional Verifying Personnel: S. Baby Blendy, ST CORD INFORMATION BABY A No. Cord Vessels: 3 Nuchal Cord : N/A Cord Blood Taken: Yes-For Storage (Mom's Blood type +) Infant Suction: None ASSESSMENT BABY A Infant Complications: None Physical Findings at Delivery: Within Normal Limits Infant Respirations: Appears Normal Skin to Skin: Yes Licensing Analyst/ALS Called : No Infant Care By: Any Lawler RN Transferred To: Remains with Mother BABY B INFORMATION : N/A SIGNATURES Signature: with User ID: [email or web address] : Daniel was personally available for consultation and serving as supervising physician for the MLP.
--- NOTE | 2020-05-15 00:57 | Birth Certificate Data ---
Cert Data Datetime Report Generated by CPN: 05/15/2020 00:56 CERTIFICATE DATA Delivery Provider: Gregg Brasher MD (05/13/2020 13:51:Leatha Lawler RN) 47a. Care: Yes (05/13/2020 13:51:Marquita Venegas RN) 47b. Date of First Visit: 11/06/2019 00:00 (05/13/2020 13:51:Marquita Venegas RN) 47c. Date of Last Visit: 05/08/2020 00:00 (05/13/2020 13:51:Marquita Venegas RN) 47d. Number of Visits: 9 (05/13/2020 13:51:Marquita Venegas RN) 48a. Number of Prev Live Births: 0 (05/13/2020 13:51:Michelle Boland RN) 48b. Now Livin (05/13/2020 13:51:Michelle Boland RN) 48c. Live Births Now : 0 (05/13/2020 13:51:QS system process) 48e. Losses: 1 (05/13/2020 13:51:Michelle Boland RN) RISK FACTORS IN THIS 49a. Diabetes: No (05/13/2020 13:51:Michelle Boland RN) 49b. Hypertension: No (05/13/2020 13:51:Michelle Boland RN) 49c. Previous Births: 0 (05/13/2020 13:51:Michelle Boland RN) 49d. Stillborns: No (05/13/2020 13:51:Michelle Boland RN) 49d. IUGR: No (05/13/2020 13:51:Michelle Boland RN) 49e. Infertility Treatment: No (05/13/2020 13:51:Michelle Boland RN) 49f. Previous Cesareans: 0 (05/13/2020 13:51:Michelle Boland RN) Mother's Height 50b. Height Inches: 62 (05/14/2020 07:31:QS system process) Mother's Weight 51a. Pre- Weight (lbs): 116 (05/13/2020 13:51:Marquita Venegas RN) 51b. Weight at Delivery (lbs): 143 (05/14/2020 07:31:QS system process) 52. Dt Last Normal Menses Began: 08/15/2019 00:00 (05/13/2020 13:51:Michelle Boland RN) Infections Present/Treated 53a. Gonorrhea: No (05/13/2020 13:51:Michelle Boland RN) Results this Hospital Visit : Negative (05/13/2020 13:51:Michelle Boland RN) 53b. Syphilis: No (05/13/2020 13:51:Michelle Boland RN) Results this Hospital Visit: NONREACTIVE (05/14/2020 08:42:QS system process) 53c. Chlamydia: No (05/13/2020 13:51:Michelle Boland RN) Results this Hospital Visit: Negative (05/13/2020 13:51:Michelle Boland RN) 53d. Hepatitis B: No (05/13/2020 13:51:Michelle Boland RN) Results this Hospital Visit: Negative (05/13/2020 13:51:Marquita Venegas RN) 53e. Hepatitis C: Negative (05/13/2020 13:51:Marquita Venegas RN) 53h. Mother Tested for HBsAG: Yes (05/13/2020 13:51:Marquita Venegas RN) 53i. Date Tested: 11/06/2019 00:00 (05/13/2020 13:51:Marquita Venegas RN) 53j. Test Result: Negative (05/13/2020 13:51:Marquita Venegas RN) Obstetric Procedures 54a, b, c. Obstetric Procedures: Ultrasound; NST (05/13/2020 13:51:Michelle Boland RN) Cigarette Smoking Cigarette Smoking: Never Smoker. [id number] (05/13/2020 13:51:Michelle Boland RN) 55a. 3 Months Before Preg - Ci (05/13/2020 13:51:Michelle Boland RN) 55a. Packs: 0 (05/13/2020 13:51:Michelle Boland RN) 55b. 1st Trimester of Preg- Ci (05/13/2020 13:51:Michelle Boland RN) 55b. Packs: 0 (05/13/2020 13:51:Michelle Boland RN) 55c. 2nd Trimester of Preg- Ci (05/13/2020 13:51:Michelle Boland RN) 55c. Packs: 0 (05/13/2020 13:51:Michelle Boland RN) 55d. 3rd Trimester of Preg- Ci (05/13/2020 13:51:Michelle Boland RN) 55d. Packs: 0 (05/13/2020 13:51:Michelle Boland RN) Onset of Labor 56a. PROM >12 Hrs: 8.43 (05/13/2020 13:51:QS system process) 56b. Precipitous Labor <3 Hrs: 8 (05/13/2020 13:51:QS system process) 56c. Prolonged Labor > 20 Hrs: 8 (05/13/2020 13:51:QS system process) 57a. Induction of Labor: Augmentation (05/13/2020 13:51:Leatha Lawler RN) 57c. Non-Vertex Presentation A: Vertex (05/13/2020 13:51:Leatha Lawler RN) 57d. Steroids - Lung Mat: None (05/13/2020 13:51:Leatha Lawler RN) 57d. Steroids - Lung Mat: Not Applicable (05/13/2020 13:51:Leatha Lawler RN) 57e. Antibiotics During Labor: 05/14/2020 21:10 (05/13/2020 13:51:Leatha Lawler RN) 57f. Mat [place] or Temp >100.4: 99.7 (05/13/2020 13:51:Leatha Lawler RN) 57g. Moderate/Heavy Meconium: Clear (05/14/2020 15:03:Michelle Boland RN) 57h. Intolerance of Labor: N/A (05/13/2020 13:51:Carline Trinidad RN) 57i. Epidural/Spinal Anesthesia: Epidural (05/13/2020 13:51:Leatha Lawler RN) Method of Delivery 58a. Forceps - Unsuccessful A: N/A (05/13/2020 13:51:Leatha Lawler RN) 58b. Vacuum - Unsuccessful A: N/A (05/13/2020 13:51:Leatha Lawler RN) 58c. Presentation at 58c. Presentation at - A : Vertex (05/13/2020 13:51:Leatha Lawler RN) 58c. Presentation at - A : N/A (05/13/2020 13:51:Leatha Lawler RN) 58c. Presentation at - A : Cephalic (05/13/2020 13:51:Gregg Brasher MD ([facility])) Final Route and Method of Del 58d. Baby A Route/Delivery: Vaginal (05/14/2020 23:29:Carline Trinidad RN) 58e. Trial of Labor Attempted: No (05/13/2020 13:51:Leatha Lawler RN) 58e. Trial of Labor Attempted A: N/A (05/13/2020 13:51:Leatha Lawler RN) 58e. Trial of Labor Attempted B: N/A (05/13/2020 13:51:Leatha Lawler RN) Maternal Morbidity 59b. 3rd or 4th Degree Lacs: Perineal (05/13/2020 13:51:Gregg Brasher, MD ([facility])) 59b. 3rd or 4th Degree Lacs: First Degree (05/13/2020 13:51:Carline Trinidad, RN) 61. GA at Delivery Baby A: 39.0 (05/13/2020 13:51:Leatha Lawler RN) : Full Term- 39- 40.6 Weeks (05/13/2020 13:51:QS system process) 62a. 5 Minute Baby A: 9 (05/13/2020 13:51:QS system process)
[2020-05-15] MEDS: IBUPROFEN 800 MG TABLET PO SCH ×3 (05:21→23:20)
[2020-05-15 07:30] LABS: HEMOGLOBIN 9.7 g/dL (12.0-15.5); MEAN CORPUSCULAR HEMOGLOBIN 27.4 pg (27.0-33.4); MEAN CORPUSCULAR HGB CONC 33.4 g/dL (32.0-36.0); MEAN CORPUSCULAR VOLUME 82 fl (80-97); PLATELET COUNT 156 10^3/uL (150-450); RED BLOOD COUNT 3.54 10^6/uL (3.72-5.28); RED CELL DISTRIBUTION WIDTH 14.7 % (11.5-14.0); WHITE BLOOD COUNT 14.4 10^3/uL (4.0-10.5)
[2020-05-15] MEDS: FERROUS SULFATE 325 MG TABLET PO SCH ×2 (09:57→17:36)
[2020-05-15] MEDS: PRENATAL VITAMIN W DHA CAPSULE PO SCH (09:57)
[2020-05-15] MEDS: DOCUSATE SODIUM 100 MG CAPSULE PO SCH ×2 (09:57→17:37)
[2020-05-15] MEDS: SENNOSIDES/DOCUSATE 8.6-50 MG 1 EACH TABLET PO SCH (09:57)
--- NOTE | 2020-05-15 10:53 | PDOC PROGRESS REPORT ---
Subjective-OB Progress Note for:: 05/15/20 Subjective: Pt doing well, no concerns. She reports light bleeding, reg diet and voiding w/o difficulty. Physical Exam (OB) Vital Signs: Temp Pulse Resp BP Pulse Ox 98.1 F 69 16 104/57 L 100 05/15/20 10:00 05/15/20 07:17 05/15/20 07:17 05/15/20 07:17 05/15/20 07:17 Intake & Output 05/14/20 05/15/20 05/16/20 06:59 06:59 06:59 Intake Total 858 Balance 858 Weight 64.5 kg - PIH/Pre-Eclampsia DTR's: 1 + Clonus: Negative Headache: Absent Epigastric Pain: No Visual Changes: No - Maternal Morbidity 59. Maternal Morbidity (serious complications experinced by the mother associated with labor and delivery: None of the above - Lochia Lochia Amount: Scant < 10 ml Lochia Color: Rubra/Red - Abdomen Description: Soft Hernia Present: No Fundal Description: Firm, Midline Fundal Height: u/u - u/2 Objective-Diagnostic Laboratory: 05/15/20 06:48 05/15/20 06:48 WBC 14.4 H RBC 3.54 L Hgb 9.7 L Hct 29.0 L MCV 82 MCH 27.4 MCHC 33.4 RDW 14.7 H Plt Count 156 Assessment and Plan(PN) - Assessment and Plan (1) Delivered after artificial rupture of membranes Is this a current diagnosis for this admission?: Yes (2) Gestational hypertension without significant proteinuria during in third trimester, antepartum Is this a current diagnosis for this admission?: Yes (3) Laceration, obstetrical, first degree Is this a current diagnosis for this admission?: Yes (4) Vaginal delivery Is this a current diagnosis for this admission?: Yes - Time Spent with Patient Time with patient: Less than 15 minutes Medications reviewed and adjusted accordingly: Yes - Disposition Anticipated Discharge Disposition: Home, Self Care Anticipated Discharge Timeframe: within 24 hours
[2020-05-16] MEDS: IBUPROFEN 800 MG TABLET PO SCH ×2 (05:58→13:55)
[2020-05-16 08:30] VITALS: BP 115/71
--- NOTE | 2020-05-16 09:49 | PDOC DISCHARGE SUMMARY ---
Impression - Admit/DC Date/PCP Admission Date/Primary Care Provider: 05/14/20 07:46 OWEN GRIGSBY MD Discharge Date: 05/16/20 - Discharge Diagnosis (1) Delivered after artificial rupture of membranes Is this a current diagnosis for this admission?: Yes (2) Gestational hypertension without significant proteinuria during in third trimester, antepartum Is this a current diagnosis for this admission?: Yes (3) Laceration, obstetrical, first degree Is this a current diagnosis for this admission?: Yes (4) Vaginal delivery Is this a current diagnosis for this admission?: Yes - Additional Information Resuscitation Status: Full Code Discharge Diet: Regular Discharge Activity: Balance Activity w/Rest, Pelvic Rest Referrals: OWEN GRIGSBY MD [Primary Care Provider] - Prescriptions: Ibuprofen [Motrin 800 mg Tablet] 800 mg PO Q8HP PRN #60 tablet PRN Reason: Home Medications: Vit,Calc76/Iron/Folic [Prenatabs Rx Tablet] 1 tab PO DAILY 05/13/20 Ibuprofen [Motrin 800 mg Tablet] 800 mg PO Q8HP PRN #60 tablet 05/16/20 HPI Gestational Age: 39.0 Reason(s) for Admission: Status, PIH Procedures: NST Intrapartum Procedure(s): Spontaneous Vaginal Delivery Complication(s): Laceration-Perineal Laceration-Degree: 1st Hospital Course 59. Maternal Morbidity (serious complications experinced by the mother associated with labor and delivery: None of the above Results Laboratory Results: WBC 14.4 10^3/uL (4.0-10.5) H 05/15/20 06:48 RBC 3.54 10^6/uL (3.72-5.28) L 05/15/20 06:48 Hgb 9.7 g/dL (12.0-15.5) L 05/15/20 06:48 Hct 29.0 % (36.0-47.0) L 05/15/20 06:48 MCV 82 fl (80-97) 05/15/20 06:48 MCH 27.4 pg (27.0-33.4) 05/15/20 06:48 MCHC 33.4 g/dL (32.0-36.0) 05/15/20 06:48 RDW 14.7 % (11.5-14.0) H 05/15/20 06:48 Plt Count 156 10^3/uL (150-450) 05/15/20 06:48 Lymph % (Auto) 9.0 % (13-45) L 05/14/20 08:42 [place] % (Auto) 3.4 % (3-13) 05/14/20 08:42 Eos % (Auto) 0.0 % (0-6) 05/14/20 08:42 Baso % (Auto) 0.2 % (0-2) 05/14/20 08:42 Absolute Neuts (auto) 11.4 10^3/uL (1.7-8.2) H 05/14/20 08:42 Absolute Lymphs (auto) 1.2 10^3/uL (0.5-4.7) 05/14/20 08:42 Absolute Monos (auto) 0.4 10^3/uL (0.1-1.4) 05/14/20 08:42 Absolute Eos (auto) 0.0 10^3/uL (0.0-0.6) 05/14/20 08:42 Absolute Basos (auto) 0.0 10^3/uL (0.0-0.2) 05/14/20 08:42 Seg Neutrophils % 87.4 % (42-78) H 05/14/20 08:42 Urine Color LIGHT YELLOW 05/14/20 07:00 Urine Appearance HAZY 05/14/20 07:00 Urine pH 6.0 (5.0-9.0) 05/14/20 07:00 Ur Specific [place] 1.030 05/14/20 07:00 Urine Protein 100 mg/dL (NEGATIVE) H 05/14/20 07:00 Urine Glucose (UA) NEGATIVE mg/dL (NEGATIVE) 05/14/20 07:00 Urine Ketones 300 mg/dL (NEGATIVE) H 05/14/20 07:00 Urine Blood LARGE (NEGATIVE) H 05/14/20 07:00 Urine Nitrite NEGATIVE (NEGATIVE) 05/14/20 07:00 Urine Bilirubin NEGATIVE (NEGATIVE) 05/14/20 07:00 Urine Urobilinogen NEGATIVE mg/dL (<2.0) 05/14/20 07:00 Ur Leukocyte Esterase TRACE (NEGATIVE) H 05/14/20 07:00 Urine Ascorbic Acid 40 (NEGATIVE) H 05/14/20 07:00 Membranes Rupture POSITIVE (NEGATIVE) H 05/14/20 16:42 Urine Opiates Screen NEGATIVE 05/14/20 07:00 Urine Methadone Screen NEGATIVE 05/14/20 07:00 Ur Barbiturates Screen NEGATIVE 05/14/20 07:00 Ur Phencyclidine Scrn NEGATIVE 05/14/20 07:00 Ur Amphetamines Screen NEGATIVE 05/14/20 07:00 U Benzodiazepines Scrn NEGATIVE 05/14/20 07:00 Urine Cocaine Screen NEGATIVE 05/14/20 07:00 U Marijuana (THC) Screen NEGATIVE 05/14/20 07:00 RPR NONREACTIVE (NONREACTIVE) 05/14/20 08:42 Blood Type O POSITIVE 05/14/20 08:42 Antibody Screen NEGATIVE 05/14/20 08:42 Plan Plan of Treatment: f/u at [facility] Time Spent: Less than 30 Minutes
[2020-05-16] MEDS: PRENATAL VITAMIN W DHA CAPSULE PO SCH (10:37)
[2020-05-16] MEDS: SENNOSIDES/DOCUSATE 8.6-50 MG 1 EACH TABLET PO SCH (10:37)
[2020-05-16] MEDS: DOCUSATE SODIUM 100 MG CAPSULE PO SCH (10:37)
[2020-05-16] MEDS: FERROUS SULFATE 325 MG TABLET PO SCH (10:37)
== END 2020-05-16 15:00 | disposition home or self-care (01) | DRG 807 ==
LOC: LC 06:46 → LR 07:46 → 2S 05-15 01:27
PROVIDERS: ADMIT Obstetrics & Gynecology Gynecology; ATTEND Obstetrics & Gynecology Gynecology
PROC: 10E0XZZ Delivery of Products of Conception, External Approach (ICD-10-PCS; principal; 2020-05-14)
PROC: 0HQ9XZZ Repair Perineum Skin, External Approach (ICD-10-PCS; 2020-05-14)
PROC: 3E0234Z Introduction of Serum, Toxoid and Vaccine into Muscle, Percutaneous Approach (ICD-10-PCS; 2020-05-16)
DX: O13.4 Gestational [pregnancy-induced] hypertension without significant proteinuria, complicating childbirth (principal); Z37.0 Single live birth; Z20.822 Contact with and (suspected) exposure to COVID-19; O70.0 First degree perineal laceration during delivery; O76 Abnormality in fetal heart rate and rhythm complicating labor and delivery; O99.52 Diseases of the respiratory system complicating childbirth; J45.909 Unspecified asthma, uncomplicated; O99.824 Streptococcus B carrier state complicating childbirth; Z23 Encounter for immunization; Z88.8 Allergy status to other drugs, medicaments and biological substances; Z3A.39 39 weeks gestation of pregnancy
CPT/HCPCS: 1967; 36415; 80307; 81005; 84112; 85025; 85027; 86592; 86850; 86900; 86901; 90715; 94760; J2300; J2540; J2550; J2590; J2795; J3010; J3490; J7060